=== PATIENT | male | born 1990 | race Caucasian/White ===

== ENCOUNTER 2024-04-30 20:41 | Emergency (ER) | payer BC ==
[~2024-04-30] VITALS: Ht 172.7 cm; Wt 83.9 kg
[2024-04-30 23:35] VITALS: BP 125/71; TEMP 98; O2SAT 99
== END 2024-04-30 23:35 | disposition home or self-care (01) ==
LOC: ER 20:48
DX: N48.89 Other specified disorders of penis (principal); F17.200 Nicotine dependence, unspecified, uncomplicated; Z88.0 Allergy status to penicillin; Z88.2 Allergy status to sulfonamides